=== PATIENT | female | born 1965 | race Caucasian/White ===

== ENCOUNTER → 2016-07-02 | Outpatient (CLI) | payer OTHER ==
[~2016-07-02] MED LIST: ASPI81TA28 PO; BCPILLS PO; IBUP-1050 PO; MISCCAP80 PO; OMEG10007 PO; PRD/1 PO; VNTHFA/IN INH
== END | disposition home or self-care (01) ==
LOC: C.PAPS 17:18
PROVIDERS: ATTEND Obstetrics & Gynecology
DX: Z12.4 Encounter for screening for malignant neoplasm of cervix (principal)

== ENCOUNTER 2017-02-04 05:15 | Emergency (ER) | payer OTHER ==
[~2017-02-04] VITALS: Ht 172.7 cm; Wt 67.5 kg
[~2017-02-04 05:15] MED LIST changes: -IBUP-1050 PO; -MISCCAP80 PO; -OMEG10007 PO; -VNTHFA/IN INH
[2017-02-04 05:20] VITALS: TEMP 36.8; Ht 172.7 cm; Wt 67.5 kg
--- NOTE | 2017-02-04 05:50 | EMERGENCY ROOM VISIT NOTE ---
History Report prepared by Pedro Luis: Abhishek Calvillo Under the Supervision of: Dr. Lisa Ferrell D.O. First contact with patient: 05:30 Chief Complaint: ABDOMINAL PAIN Stated Complaint: ABDOMINAL PAIN - RIGHT BACK SIDE History of Present Illness The patient is a 51 year old female who presents to the Emergency Room with complaints of persistent pelvic pain that began yesterday. She rates her current pain a 4/10 in severity. She notes that beginning two weeks ago, she started to have this pain intermittently, but it would go away after a few days. This is the first time it has persisted. She states that the pain feels like menstrual cramps, but she has not had a menstrual period in 9 months, secondary to menopause. Her pain is radiating into her lower right back as well. She had a normal, but small, bowel movement yesterday. She denies any fever, nausea, abnormal urinary symptoms, weight changes, cough, sore throat, leg swelling, or leg cramping. Deep breaths worsen her abdominal pain. She has not had weight changes and has been eating okay. She has a past medical history of a uterine fibroid. Source of History: patient Onset: yesterday Position: abdomen (RLQ) Symptom Intensity: 4/10 Quality: cramping Timing: constant Modifying Factors (Worsening): breathing Associated Symptoms: + back pain, No fevers, No sorethroat, No cough, No nausea, No vomiting, No urinary symptoms Review of Systems See HPI for pertinent positives & negatives. A total of 10 systems reviewed and were otherwise negative. Past Medical & Surgical Medical Problems: (1) Ovarian cyst (2) Uterine fibroid Family History Patient reports no known family medical history. Social History Smoking Status: Never Smoker Smokeless Tobacco Use: No Alcohol Use: none Drug Use: none Marital Status: Housing Status: lives with significant other Occupation Status: employed Current/Historical Medications Scheduled Fish Oil ([place]-3), 2 CAP PO DAILY Prednisone (Prednisone), PO UD Probiotic Product (Probiotic), 1 CAP PO DAILY Allergies Coded Allergies: No Known Allergies (Unverified , 02/04/17) Physical Exam Vital Signs Date Time Temp Pulse Resp B/P (MAP) Pulse Ox O2 Delivery O2 Flow Rate FiO2 02/04/17 05:20 36.8 57 18 130/78 99 Room Air Physical Exam HEENT: Head - normocephalic and atraumatic Pupils are equal, round, and reactive to light. Extraocular eye muscles are intact, and sclera are anicteric. Nose - moist nasal mucosa without discharge. Mouth - moist buccal mucosa. Oropharynx is nonerythematous and there is no tonsillar exudate or edema noted. Neck: Supple; no JVD, nuchal rigidity, cervical lymphadenopathy. Heart: Regular rate and rhythm. There is a normal S1 and S2 with no murmurs, clicks, or gallops appreciated. Lungs: Clear to auscultation bilaterally with no wheezes, rales, or rhonchi. Abdomen: Soft, moderate discomfort in the pelvis right greater than left to palpation, nondistended, with good bowel sounds. There are no palpable pulsatile masses or hepatosplenomegaly. There is no guarding, rigidity, or rebound noted. Extremities: No evidence of cyanosis, clubbing, or edema. There are easily palpable peripheral pulses. Skin: warm and dry with good turgor and no rashes. Medical Decision & Procedures ER Provider Diagnostic Interpretation: Pelvic ultrasound: Pending Laboratory Results 02/04/17 05:55 Red Blood Count 4.63, Mean Corpuscular Volume 90.5, Mean Corpuscular Hemoglobin 30.0, Mean Corpuscular Hemoglobin Concent 33.2, Mean Platelet Volume 10.7, Neutrophils (%) (Auto) 73.5, Lymphocytes (%) (Auto) 17.2, Monocytes (%) (Auto) 8.3, Eosinophils (%) (Auto) 0.6, Basophils (%) (Auto) 0.1, Neutrophils # (Auto) 9.83, Lymphocytes # (Auto) 2.30, Monocytes # (Auto) 1.11, Eosinophils # (Auto) 0.08, Basophils # (Auto) 0.02 Test 02/04/17 05:40 02/04/17 05:55 White Blood Count 13.38 K/uL (4.8-10.8) Red Blood Count 4.63 M/uL (4.2-5.4) Hemoglobin 13.9 g/dL (12.0-16.0) Hematocrit 41.9 % (37-47) Mean Corpuscular Volume 90.5 fL (80-100) Mean Corpuscular Hemoglobin 30.0 pg (25-34) Mean Corpuscular Hemoglobin Concent 33.2 g/dl (32-36) Platelet Count 296 K/uL (130-400) Mean Platelet Volume 10.7 fL (7.4-10.4) Neutrophils (%) (Auto) 73.5 % Lymphocytes (%) (Auto) 17.2 % Monocytes (%) (Auto) 8.3 % Eosinophils (%) (Auto) 0.6 % Basophils (%) (Auto) 0.1 % Neutrophils # (Auto) 9.83 K/uL (1.4-6.5) Lymphocytes # (Auto) 2.30 K/uL (1.2-3.4) Monocytes # (Auto) 1.11 K/uL (0.11-0.59) Eosinophils # (Auto) 0.08 K/uL (0-0.5) Basophils # (Auto) 0.02 K/uL (0-0.2) RDW Standard Deviation 45.6 fL (36.4-46.3) RDW Coefficient of Variation 13.8 % (11.5-14.5) Immature Granulocyte % (Auto) 0.3 % Immature Granulocyte # (Auto) 0.04 K/uL (0.00-0.02) Laboratory results per my review. ED Course 0530: Past medical records reviewed. The patient was evaluated in room B11B. A complete history and physical exam was performed. Labs were drawn as above. The patient will go for ultrasound of the pelvis. 0630: At this time, the patient was signed out to Dr. Woods at the change in shifts. Medical Decision The patient is a 51 year old female who presents to the ED with RLQ abdominal pain/pelvic pain. Differential diagnosis includes ovarian torsion, ovarian cyst , uterine fibroids, ovarian mass, appendicitis, diverticulitis, and cystitis. Laboratory studies: Pending The patient is on her way to ultrasound at this time. The case was signed a doctor presently change of shift. Medication Reconcilliation Current Medication List: was personally reviewed by me Blood Pressure Screening Patient's blood pressure: Elevated blood pressure Blood pressure disposition: Elevated BP felt to be situational (secondary to pain) Impression Primary Impression: Pelvic pain Scribe Attestation The scribe's documentation has been prepared under my direction and personally reviewed by me in its entirety. I confirm that the note above accurately reflects all work, treatment, procedures, and medical decision making performed by me. Departure Information Dispostion Still a Patient Referrals Luda Cohen MD (PCP) Patient Instructions My [facility]
[2017-02-04] MEDS ORDERED: MISCCAP80 PO (05:52)
[2017-02-04] MEDS ORDERED: OMEG10007 PO (05:52)
[2017-02-04 06:14] LABS: BASO % 0.1 %; BASO ABS # 0.02 K/uL (0-0.2); COMPLETE YES; EOS % 0.6 %; HEMATOCRIT 41.9 % (37-47); IG% 0.3 %; LYMPH % 17.2 %; MEAN CELL VOLUME 90.5 fL (80-100); MEAN CORPUSCULAR HGB CONC 33.2 g/dl (32-36); MEAN PLATELET VOLUME 10.7 fL (7.4-10.4); MONO % 8.3 %; NEUT % 73.5 %; PLATELET COUNT 296 K/uL (130-400); RED BLOOD COUNT 4.63 M/uL (4.2-5.4); WHITE BLOOD COUNT 13.38 K/uL (4.8-10.8)
[2017-02-04 06:31] LABS: BUN/CREATININE RATIO 23.7 (10-20); CALCIUM 8.6 mg/dl (8.5-10.1); CREATININE 0.8 mg/dl (0.60-1.20); POTASSIUM 3.4 mmol/L (3.5-5.1)
[2017-02-04 06:39] LABS: URINE APPEARANCE CLEAR (CLEAR); URINE BILIRUBIN NEG (NEG); URINE COLOR YELLOW; URINE EPITHELIAL CELL AUTO >30 /lpf (0-5); URINE NITRITE NEG (NEG); URINE PH 5.5 (4.5-7.5); URINE SPECIFIC GRAVITY 1.031 (1.000-1.030); UROBILINOGEN NEG (NEG)
[2017-02-04 06:43] LABS: MANUAL MICROSCOPIC REQUIRED? NO; REVIEW REQ? NO
--- NOTE | 2017-02-04 07:30 | DIAGNOSTIC IMAGING REPORT ---
EXAMINATION: PELVIC ULTRASOUND CLINICAL HISTORY: Right-sided pelvic pain COMPARISON STUDY: 10/03/2010 FINDINGS: The uterus measured 11.6 x 5.9 x 9.5 cm. There is an 8 cm uterine fibroid present. There is a complex cervical lesion measuring 5.2 x 3 x 4.4 cm. Diagnostic considerations include organizing hematoma versus neoplasm.. The endometrial stripe measured 8 mm. The right ovary measured 25 x 19 x 26 mm. There is a 17 mm follicle.. The left ovary measured 24 x 17 x 24 mm. There is a 15 mm follicle.. There is no ultrasonographic evidence of ovarian torsion. It should be noted that ovarian torsion can be present with normal Doppler ultrasonographic findings. There is a small amount of free fluid present within the cul-de-sac. IMPRESSION: 1. Large 8 cm uterine fibroid 2. 5.2 cm complex cervical lesion. Likely diagnostic considerations include organizing hematoma versus neoplasm. Gynecological consultation is recommended. Electronically signed by: Joseph Land M.D. 02/04/2017 7:29 AM Dictated Date/Time: 02/04/2017 7:24 AM
[2017-02-04] MEDS ORDERED: KETOROLAC TROMETHAMINE 30 MG/ML VIAL IV STA (08:38)
[2017-02-04] MEDS ORDERED: OPTIRAY 320 IV PRN (08:45)
--- NOTE | 2017-02-04 09:13 | DIAGNOSTIC IMAGING REPORT ---
CT ABD/PELVIS IV CONTRAST ONLY CLINICAL HISTORY: Right lower quadrant abdominal pain COMPARISON STUDY: 10/03/2010, pelvic ultrasound dated 02/04/2017 TECHNIQUE: Following the IV administration of 92 mL of Optiray-320, CT scan of the abdomen and pelvis was performed from the lung bases to the proximal femurs. Images are reviewed in the axial, sagittal, and coronal planes. IV contrast was administered without complication. A dose lowering technique was utilized adhering to the principles of ALARA. CT DOSE: 297.02 mGy.cm FINDINGS: Lower chest: There are minor basilar atelectatic changes. Liver: There is mild periportal edema, finding which may be secondary to aggressive hydration. There are no focal hepatic masses. Gallbladder: Unremarkable. Spleen: Normal in size and attenuation. Pancreas: Unremarkable. Adrenal glands: Unremarkable. Kidneys: No solid renal masses are visualized. There are multiple left-sided parapelvic cysts. Bowel: There are no transition zones to indicate bowel obstruction. There is no evidence of acute diverticulitis. There is no evidence of acute appendicitis Peritoneum: There is trace free pelvic fluid likely physiologic. There is no free intraperitoneal air. Vasculature: The abdominal aorta is normal in course and caliber. Adenopathy: None. Pelvic viscera: There is a 7 cm right-sided fundal uterine mass, likely representing a fibroid. There is a 5 cm cervical mass. Gynecological consultation is recommended. Skeletal structures: No destructive osseous lesions are seen. IMPRESSION: 1. No evidence of bowel obstruction. No evidence of free air 2. No evidence of acute diverticulitis. No evidence of acute appendicitis. 3. 7 cm uterine mass likely representing a fibroid 4. 5 cm cervical mass. Gynecological consultation is recommended Electronically signed by: Joseph Land M.D. 02/04/2017 9:12 AM Dictated Date/Time: 02/04/2017 9:05 AM
[2017-02-04 09:23] VITALS: BP 115/65; PULSE 51; O2SAT 100
--- NOTE | 2017-02-04 09:33 | EMERGENCY ROOM VISIT NOTE ---
ED Visit Note First contact with patient: 08:07 Patient received in signout from Dr. Ferrell. Labs and ultrasound pending at that time. I reviewed the labs and pelvic ultrasound with the patient. Due to persistent pain patient been sent for CAT scan to rule out additional pathology. Discussed CT results with patient as well. Pain improved following dose of IV Toradol here. Discussed need for close follow-up with [employer] given uterine fibroid which appears larger on today's ultrasound and CT than prior ultrasound 2010, also discussed findings of 5.2 complex cervical lesion. Patient with no abnormal bleeding or discharge. Discussed symptoms to watch and return for, she verbalized understanding was agreeable with plan.
[2017-03-06] MEDS ORDERED: VNTHFA/IN INH (14:42)
[2017-03-06] MEDS ORDERED: IBUP-1050 PO (14:43)
[2017-03-22] MEDS ORDERED: OXYC-57 PO (10:42)
== END 2017-02-04 09:49 | disposition home or self-care (01) ==
LOC: C.EDB 05:17
DX: R10.2 Pelvic and perineal pain (principal); D25.9 Leiomyoma of uterus, unspecified; N88.9 Noninflammatory disorder of cervix uteri, unspecified; Z79.899 Other long term (current) drug therapy

== ENCOUNTER → 2017-03-06 | Outpatient (CLI) | payer OTHER ==
[~2017-03-06] MED LIST changes: -ASPI81TA28 PO; -BCPILLS PO; +IBUP-1050 PO; +MISCCAP80 PO; +OMEG10007 PO; +OXYC-57 PO; +SENNTAB23 PO; +VNTHFA/IN INH
== END | disposition home or self-care (01) ==
LOC: C.LABSPEC 13:51 → C.PATHSPEC 13:53
PROVIDERS: ATTEND Obstetrics & Gynecology
DX: D25.9 Leiomyoma of uterus, unspecified (principal); N84.0 Polyp of corpus uteri

== ENCOUNTER 2017-03-22 05:40 | Observation (INO) | payer OTHER ==
[2017-03-06 14:44] VITALS: BMI 23.0
--- NOTE | 2017-03-06 15:21 | PAT Medication Instructions ---
Service Date Mar 06, 2017. Current Home Medication List Albuterol Hfa (Ventolin Hfa), 2 PUFFS INH Q6H PRN for PRN Fish Oil ([place]-3), 1 CAP PO BID Ibuprofen (Advil), 800 MG PO PRN Probiotic Product (Probiotic), 1 CAP PO HS Medication Instructions For Your Scheduled Surgery - Hold the following medications per your surgeon's instructions: Ibuprofen (Advil), 800 MG PO PRN - Hold the following medications 2 weeks prior to surgery: Fish Oil ([place]-3), 1 CAP PO BID - Take the following medications the morning of surgery with a sip of water: Albuterol Hfa (Ventolin Hfa), 2 PUFFS INH Q6H PRN for PRN (if needed, and bring with you the morning of the surgery) - Take the following medications as scheduled the night before surgery: Probiotic Product (Probiotic), 1 CAP PO HS Albuterol Hfa (Ventolin Hfa), 2 PUFFS INH Q6H PRN for PRN (if needed) If you have any questions please call us at [phone] or [phone] or [phone]
[2017-03-06 16:05] LABS: BASO % 0.2 %; BASO ABS # 0.01 K/uL (0-0.2); COMPLETE YES; EOS % 3.4 %; HEMATOCRIT 39.1 % (37-47); IG% 0.2 %; LYMPH ABS # 1.84 K/uL (1.2-3.4); MEAN CELL VOLUME 90.7 fL (80-100); MEAN CORPUSCULAR HEMOGLOBIN 30.4 pg (25-34); MEAN CORPUSCULAR HGB CONC 33.5 g/dl (32-36); MEAN PLATELET VOLUME 10.8 fL (7.4-10.4); MONO % 9.5 %; NEUT % 51.7 %; PLATELET COUNT 300 K/uL (130-400); RED BLOOD COUNT 4.31 M/uL (4.2-5.4); WHITE BLOOD COUNT 5.26 K/uL (4.8-10.8)
[2017-03-22] VITALS (8 sets, daily range): BP systolic 113–133; BP diastolic 65–86; PULSE 42–74; TEMP 36.3–36.7; O2SAT 97–100; Ht 172.7 cm; Wt 68.6 kg
[~2017-03-22] VITALS: Ht 172.7 cm; Wt 68.6 kg
[~2017-03-22 05:40] MED LIST changes: -OXYC-57 PO; -PRD/1 PO; -SENNTAB23 PO
[2017-03-22] MEDS ORDERED: LACTATED RINGER'S 1000ML 1,000 ML IV SCH ×3 (06:00→09:40)
[2017-03-22] MEDS ORDERED: CEFAZOLIN 2000 MG/60 ML D5W 50 ML IV SCH (06:00)
[2017-03-22] MEDS ORDERED: SENNTAB23 PO (06:03)
[2017-03-22] MEDS ORDERED: SCOPOLAMINE 1.5 MG TDSY TD ONE (06:20)
[2017-03-22] MEDS ORDERED: FENTANYL CITRATE INJ 50 MCG/1 ML 2 ML VIAL ONE ×2 (06:58→09:44)
[2017-03-22] MEDS ORDERED: MIDAZOLAM HCL 1 MG/ML 2ML VIAL ONE (06:58)
[2017-03-22] MEDS ORDERED: BUPIVACAINE 0.5 % 5 MG/1 ML MPF 30ML VIAL ONE (07:06)
--- NOTE | 2017-03-22 07:19 | History & Physical Bridge Note ---
H&P Re-Evaluation Bridge Note: I have examined the patient, reviewed the History & Physical and in the interval since the performance of the History & Physical I have noted the following changes of clinical significance: No changes noted
[2017-03-22] MEDS ORDERED: PROPOFOL IV EMULSION 10 MG/ML 100 ML VIAL IV ONE (07:23)
[2017-03-22] MEDS ORDERED: REMIFENTANIL 1 MG VIAL ONE (07:24)
[2017-03-22] MEDS ORDERED: HYDROmorphone INJ 2 MG/ML SYR/VIAL ONE (07:55)
[2017-03-22] MEDS ORDERED: ACETAMINOPHEN 1000 MG/100 ML IV IV ONE (08:58)
[2017-03-22] MEDS ORDERED: MEPERIDINE HCL 25 MG/ML CARP IV PRN (09:00)
[2017-03-22] MEDS ORDERED: LABETALOL HCL IV 5 MG/ML 20ML IV PRN (09:00)
[2017-03-22] MEDS ORDERED: FENTANYL CITRATE INJ 50 MCG/1 ML 2 ML VIAL IV PRN (09:00)
[2017-03-22] MEDS ORDERED: ATROPINE SULFATE 0.1 MG/ML 5ML SYR IV PRN (09:00)
[2017-03-22] MEDS ORDERED: HYDROmorphone INJ 1 MG/ML SYR IV PRN (09:00)
[2017-03-22] MEDS ORDERED: ONDANSETRON INJ 2 MG/ML 2 ML VIAL IV PRN ×2 (09:00→09:45)
[2017-03-22] MEDS ORDERED: EpHEDrine SULFATE INJ 50 MG/ML AMP IV PRN (09:00)
[2017-03-22] MEDS ORDERED: METOCLOPRAMIDE HCL INJ 5 MG/ML 2 ML VIAL ONE (09:12)
[2017-03-22] MEDS ORDERED: GLYCOPYRROLATE INJ 0.2 MG/ML VIAL ONE (09:12)
[2017-03-22] MEDS ORDERED: ROCURONIUM BROMIDE 10 MG/ML 5 ML VIAL IV ONE (09:12)
[2017-03-22] MEDS ORDERED: NEOSTIGMINE METHYLSULFATE 5 MG/5 ML SYR ONE (09:12)
[2017-03-22] MEDS ORDERED: LIDOCAINE HCL 2% 2 ML VIAL (20MG/ML) ONE (09:12)
[2017-03-22] MEDS ORDERED: KETOROLAC TROMETHAMINE 30 MG/ML VIAL ONE (09:12)
[2017-03-22] MEDS ORDERED: PROPOFOL IV EMULSION 10 MG/ML 20 ML VIAL IV ONE (09:12)
[2017-03-22] MEDS ORDERED: DEXAMETHASONE SOD INJ 4 MG/ML VIAL ONE (09:12)
[2017-03-22] MEDS ORDERED: ONDANSETRON INJ 2 MG/ML 2 ML VIAL ONE (09:12)
--- NOTE | 2017-03-22 09:32 | [facility] Post Operative Brief Note ---
Immediate Operative Summary Operative Date Mar 22, 2017. Pre-Operative Diagnosis Uterine leiomyoma; female pelvic pain Post-Operative Diagnosis Same as preop Procedure(s) Performed Robotic-assisted total laparoscopic hysterectomy, bilateral salpingectomy, right oopherectomy, cystoscopy Surgeon Dr. Miranda Carpenter [facility] D[employer] Surgeon(s) Dr. Quevedo Estimated Blood Loss 5 cc Findings Normal fallopian tubes, and ovaries bilaterally. Normal cervix. Uterus with fibroid. Normal ureteral jets bilaterally. Normal bladder. Fluids (cc crystalloids) 1300ml Specimens A: uterus, cervix, bilateral fallopian tubes, right ovary Drains Webster with 600ml Anesthesia General Complication(s) None Disposition Recovery Room / PACU
[2017-03-22] MEDS ORDERED: OXYCODONE/ACETAMINOPHEN 5-325 TAB PO PRN ×2 (09:45)
[2017-03-22] MEDS ORDERED: IBUPROFEN 600 MG TAB PO PRN (09:45)
[2017-03-22] MEDS ORDERED: KETOROLAC TROMETHAMINE 30 MG/ML VIAL IV. PRN (09:45)
[2017-03-22] MEDS ORDERED: ACETAMINOPHEN 325 MG TAB PO PRN (09:45)
[2017-03-22] MEDS ORDERED: IV FLUIDS COMPLETED PRN (10:00)
--- NOTE | 2017-03-22 10:41 | Discharge Instructions ---
Discharge Instructions Date of Service Mar 22, 2017. Admission Reason for Admission: Uterine Leiomyoma Discharge Discharge Diagnosis / Problem: after surgery Discharge Goals Goal(s): Routine recovery after surgery Activity Recommendations Activity Limitations: as noted below . Instructions / Follow-Up Instructions / Follow-Up POST OPERATIVE: BOWEL FUNCTION/MEDICATIONS: 1. Constipation pain and discomfort are the most common complaints 5-7 days after surgery. Points 2-6 address the things that can help. 2. Chewing gum can help stimulate the gut and help improve digestion and motility. 3. Milk of Magnesia 1-2 times per day until return of bowel function. 4. Colace is a stool softener that helps. Taking this 2-3 times per day until bowel function returns to normal is highly recommended. 5. Dulcolax is a laxative that may be used if several days have passed without a bowel movement. Alternatively Miralax may be used daily instead. 6. Drink plenty of fluids as this will also reduce constipation. 7. Narcotic pain medications will be prescribed by your physician. They are safe to use and we encourage you to use them. If you are not allergic, ibuprofen will also be prescribed. Many patients will be able to transition off of the narcotic medications to ibuprofen by postoperative day 3. ACTIVITY RECOMMENDATIONS: 1. Get plenty of rest and listen to your body. If you are tired, take a nap. 2. You may shower, but do not take a tub bath until you see your doctor at the 2 week post operative visit. 3. Absolutely NO intercourse and nothing in the vagina until you are examined by your doctor at the 8 week visit. At that visit it will be determined when such activities can be resumed. This can range from 6-12 weeks after your surgery depending on healing time. 4. The main physical activity in the first week should be walking. By the second week you can slowly increase activity. There are no limits on walking up and down stairs. 5. Do not lift more than 5-10 lbs for 4 weeks. Remember the "one-handed rule", i.e. if you can lift something with only one hand it's likely okay. 6. Minimize sports attorney like vacuuming and exercising for 4 weeks. "Overdoing it" can lead to incisions not healing, pain and vaginal bleeding , so again, listen to your body. 7. Driving can be resumed when you feel able. Do not drive within 24 hours of taking a narcotic medication. EXPECTATIONS: 1. Vaginal spotting, bleeding and discharge are common after surgery. There may even be an odor to the discharge which is often related to sutures used in the vagina. If you experience heavy vaginal bleeding, call the office number day or night [phone]. 2. Bladder discomfort is common after surgery from the catheter. This usually resolves in 1-2 weeks. 3. By the end of the 3rd or 4th week you should be feeling much better. It may take up to 6 weeks for your energy levels to return to normal. 4. Narcotic medications have side effects such as: dizziness, headache, nausea and/or vomiting. If you suspect your pain medication is causing problems, call our office and we may be able to prescribe an alternate medication. 5. The skin incisions are often covered with a liquid bandage. This will gradually peel off over time. CALL THE OFFICE IF YOU HAVE ANY OF THE FOLLOWIN. Temperature of 101 degrees or higher. 2. Severe abdominal or pelvic pain not relieved by pain medication. 3. Persistent nausea or vomiting. 4. Increased pain with urination or difficulty urinating. 5. Bright red bleeding that soaks more than 1 pad per hour. CONTACT PHONE NUMBERS: Main Office: [phone] Surgical Nurse: [phone] extension [phone] FOLLOW-UP: Post-Operative Appointments: * Individual instructions will have been given about the timing of your first examination, but this is usually at the end of the second week home. * You will need to call the office at if appt that is scheduled does not work for you. You are scheduled for your postoperative appt on Mar at 1245pm. * Additional information regarding activity, sexual intercourse and when to return to work will be given at this appointment. WE WISH YOU A SPEEDY RECOVERY! Current Hospital Diet Patient's current hospital diet: Discharge Diet Recommended Diet: Regular Diet Procedures Procedures Performed: Robotic-assisted total laparoscopic hysterectomy, bilateral salpingectomy, right oopherectomy, cystoscopy Pending Studies Studies pending at discharge: yes List of pending studies: pathology Medical Emergencies . Who to Call and When: Medical Emergencies: If at any time you feel your situation is an emergency, please call 911 immediately. . Non-Emergent Contact Non-Emergency issues call your: Rail Engineer . . "Provider Documentation" section prepared by Pat Miranda. . VTE Core Measure Inpt VTE Proph given/why not?: SCD's [place] Drug Monitoring Program Search Results: patient reviewed within database, no issues identified
[2017-03-22] MEDS ORDERED: OXYC-57 PO (10:42)
--- NOTE | 2017-03-22 11:13 | Anesthesiology Progress Note ---
Anesthesia Post Op Note Date & Time Mar 22, 2017 at 11:12 Vital Signs Pain Intensity: 2 Vital Signs Past 12 Hours Date Time Temp Pulse Resp B/P (MAP) Pulse Ox O2 Delivery O2 Flow Rate FiO2 03/22/17 10:10 36.1 42 12 133/84 100 Nasal Cannula 2 03/22/17 10:00 44 17 129/77 100 Oxymask 10 03/22/17 09:50 44 14 132/76 100 Oxymask 10 03/22/17 09:40 50 14 107/72 100 Oxymask 10 03/22/17 09:32 36.2 61 12 131/77 100 Oxymask 10 03/22/17 06:04 36.7 51 16 133/80 (97) 99 Room Air Notes Mental Status: alert / awake / arousable, participated in evaluation Pt Amnestic to Procedure: Yes Nausea / Vomiting: adequately controlled Pain: adequately controlled Airway Patency, RR, SpO2: stable & adequate BP & HR: stable & adequate Hydration State: stable & adequate Anesthetic Complications: no major complications apparent
--- NOTE | 2017-03-22 11:33 | OPERATIVE REPORT ---
DATE OF OPERATION: 03/22/2017 PREOPERATIVE DIAGNOSES: 1. Uterine leiomyoma. 2. Female pelvic pain. POSTOPERATIVE DIAGNOSIS: Same. PROCEDURES: 1. Total laparoscopic hysterectomy. 2. Right salpingo-oophorectomy. 3. Left salpingectomy. 4. Cystoscopy. 5. Robotic assistance. SURGEON: Dr. Pat Miranda. SOFTWARE DEVELOPER INTERN: Maral Quevedo. IV FLUIDS: 1300 mL. ESTIMATED BLOOD LOSS: 5 mL. ANESTHESIA: General. INDICATIONS: A 52-year-old who presented to the office with a chief complaint of symptomatic fibroid uterus for treatment planning. She was given her treatment options; however, her uterus was notably with at least 2 fibroids and approximately 12 weeks' size with a prominent right lower uterine segment fibroid that was likely causing her right lower quadrant pelvic abdominal pain. She desired definitive surgical management. Please see the history and physical for more details. FINDINGS: Uterus approximately 12 weeks' size with a large right fibroid that pushed against the right lower pelvis. Right ovary adhesed to the right uterus and infundibulopelvic ligament attenuated. The pelvis was quite distorted. Left ovary normal appearing. Normal appearing liver edge. Cystoscopy findings with normal bladder filling and normal ureteral jets. DESCRIPTION OF PROCEDURE: The patient taken to the operating room and identified. After adequate general anesthesia was obtained, she was placed in the dorsal lithotomy position and prepped and draped in the usual sterile fashion. Attention was turned to the patient's vagina where a weighted speculum and anterior retractor were placed to visualize the cervix. The cervix was grasped in its anterior lip with an Allis clamp. A Webster catheter had been placed under sterile conditions. A single interrupted suture of 0 Vicryl was placed at the 3 o'clock position on the cervix. The cervix was sequentially dilated to 21. The uterus sounded to 8 cm. The VCare uterine manipulator was gently placed through the cervical os into the uterine cavity and a balloon was inflated. The suture material was tied down to the initial VCare cup and then a stabilizing cup was placed. All vaginal instruments were removed. Attention was then turned to the patient's abdomen where a supraumbilical skin incision was made with a scalpel. The Veress needle was placed intraperitoneally with an opening pressure of 4 mmHg. A CO2 pneumoperitoneum was created. The 12 mm optical trocar was then placed under direct visualization into the peritoneal cavity. The patient was placed in steep Trendelenburg. Two da Audelia trocar sites right of the midline were created by first creating skin incisions and then placing under direct visualization da Audelia trocars. A patient assist port was placed in the left upper quadrant under direct visualization, and an additional daVinci trocar was placed in the left lower quadrant under direct visualization in a similar fashion. The bowel was teased away from the pelvis and at this point, the laparoscopic camera was removed and the robot was brought to the patient's bedside. The appropriate instrument arms were connected to the appropriate trocars. The camera was introduced. A fenestrated bipolar was brought in via instrument arm #2 and a monopolar donn via arm #1. A ProGrasp was then brought in via arm #3. The uterus was manipulated and decision was made to proceed with the beginning of the salpingectomy on the left side. That was begun using monopolar donn and cautery. The uterine ovarian and round ligament complex was then coagulated and transected sequentially. The ureter had already been seen coursing well below the planned operative sites on the left side. The broad ligament attachments were then opened up into on the left side. The bladder flap was begun from the left towards the midline. The uterine artery was skeletonized on this side. It was then coagulated and transected. The cardinal ligament attachments were further coagulated and transected. The bladder was pushed well away from the planned operative field as mentioned. At this point, attention was returned to the right side of the uterus. This anatomy was clearly more distorted. The ureter was seen coursing low in pelvis well away from planned operative site. It was apparent that the right ovary would need to be removed as it was very much adhesed to the right uterus, but also because the infundibulopelvic ligament was attenuated and distorted and would need to be taken to complete the procedure. Because of the distorted anatomy anteriorly where the bladder would sit on top of the apparent lower uterine segment fibroid, the bladder flap was continued from the midline towards the right round ligament. This allowed for pushing away the bladder from the planned operative site, but also allow for the fibroid to shell away from the right lower pelvis and right sidewall. The right round ligament was coagulated and transected. This allowed for more mobilization of the uterus away from the right sidewall. At this point, the infundibulopelvic ligament was coagulated and transected. The broad ligament attachments up to the area where the round ligament had already been transected were taken sequentially with coagulation and cutting. The uterine artery pedicle on this side was skeletonized with care. The uterine artery was then coagulated and transected. The cardinal ligament attachments were further taken down with pressure on the VCare cup. The colpotomy was then begun. The cervix was carved completely away from the vaginal cuff. The specimen was brought out vaginally. The 2-0 V-Loc 90 suture was then introduced into the abdomen and the #1 instrument arm was changed out with large needle newspaper delivery driver. The cuff was then closed in a routine fashion using a 2-0 V-Loc 90 suture material. The cuff was back stitched. The scissors were brought in through the patient assist port to cut the needle and then also to remove the needle from the abdomen. The sponge in the vagina that had been used to maintain the pneumoperitoneum was removed and no air leak was noted. The pelvis was irrigated and there were no active bleeding sites. Cystoscopy was performed with the findings as noted above. At this point, the CO2 pneumoperitoneum was let down and there was still no bleeding sites. All the instruments were removed. The robot was undocked and moved away from the patient's bedside. The patient was put in flat position after a new Webster catheter had been placed after the cystoscopy. The CO2 gas was allowed to escape from the patient's abdomen. The larger trocar sites were stiched at the subcutaneous level with 0 Vicryl as one interrupted stich. All skin incisions were closed with 4-0 Vicryl in a subcuticular fashion. The incisions had been injected with Marcaine approximately 12 mL. The incision sites were dressed with Dermabond. At this point, the procedure was terminated. The patient was returned to supine position, she was awoken from anesthesia and transferred to the recovery room in stable condition. All sponge, lap and needle counts were correct x2. I attest to the content of the Intraoperative Record and any orders documented therein. Any exceptions are noted below. JOY
[2017-03-22] MEDS ORDERED: INFLUENZA VIRUS QUAD VACCINE 0.5 ML SYR IM. ONE (12:45)
[2017-03-22] MEDS ORDERED: INFLUENZA ADMINISTRATION CHARGE ONE (12:45)
--- NOTE | 2017-03-22 19:08 | DISCHARGE SUMMARY ---
ADMISSION DIAGNOSES: 1. Uterine fibroid. 2. Penile pelvic pain. DISCHARGE DIAGNOSES: Same. PROCEDURES: 1. Total laparoscopic hysterectomy. 2. Right salpingo-oophorectomy. 3. Left salpingectomy. 4. Robotic assistance. 5. Cystoscopy. BRIEF HISTORY AND HOSPITAL COURSE: A 52-year-old with a known fibroid uterus with pelvic pain who desired definitive surgical management. She underwent the above-stated procedure without incident. Her estimated blood loss was 5 mL. Her postop course and recovery was uncomplicated. She was tolerating a regular diet, voiding spontaneously and ambulating without difficulty. Her pain was well controlled with oral medicines. She was discharged to home on her postop day #0. She was given appropriate pain prescriptions and discharge instructions. She was to follow up in 2 weeks in the office.
== END 2017-03-22 16:20 | disposition home or self-care (01) ==
LOC: C.ACU 05:40 → C.MS4N 06:00 → ENRESERV 10:41
PROVIDERS: ADMIT Obstetrics & Gynecology; ATTEND Obstetrics & Gynecology
DX: D25.9 Leiomyoma of uterus, unspecified (principal); N83.8 Other noninflammatory disorders of ovary, fallopian tube and broad ligament; N83.291 Other ovarian cyst, right side; Z80.42 Family history of malignant neoplasm of prostate; Z82.49 Family history of ischemic heart disease and other diseases of the circulatory system; J45.990 Exercise induced bronchospasm; K44.9 Diaphragmatic hernia without obstruction or gangrene
CPT/HCPCS: 58571; S2900